=== PATIENT | male | born 1970 | race African-American/Black ===

== ENCOUNTER 2016-10-13 12:34 | Emergency (ER) | payer OTHER ==
--- NOTE | ~2016-10-13 | US115 ---
[facility] A Service of [facility] & [facility] RADIOLOGY TEXT RESULTS PATIENT: JOSE J VÁSQUEZ LOCATION: [facility] : 74 UNIT #: [id number] AGE: [address]: Yovanny Haq MD SEX: M ORDER DR: [id number] [facility] [address] [place], [place] [address] [id number] MR#: [id number] Acc #: [id number] NAME: JOSE J VÁSQUEZ : 1970 SEX: M STUDY DATE/TIME: 10/13/2016 13:41 UNIT: [facility] ROOM: STUDY DESCRIPTION: US Scrotum and Contents Attending Physician: Yovanny Haq M.D. Ordering Physician: Mario Nash D.O. Primary Care Physician: Generic Doctor Not In System MEDICAL IMAGING REPORT This report is preliminary unless electronic signature is present EXAM Scrotal ultrasound, 10/13/2016 HISTORY Right testicular pain since last night. Blood in semen 2 days ago. Patient took Viagra 2 days ago. FINDINGS Real time ultrasonography of the scrotal contents performed. Denise-scale, color Doppler, Doppler pulse-wave interrogation utilized. No prior scrotal ultrasound for comparison. The right testis measures 3.51 cm x 2.19 cm x 3.28 cm. It is normal in contour. There are scattered echogenic foci within the right testis. 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 There is no testicular mass lesion. There is arterial and venous flow within the right testis. The right testis shows mild generalized hyperemia. The right epididymis is heterogeneous in echotexture and generally thickened. It is markedly hyperemic particulate in the body and tail. Findings suggest right-sided epididymitis. Mild associated orchitis likely present given the hyperemia of the right testis. No intratesticular fluid collection. There is a small right hydrocele. The left testis measures 2.75 cm x 4 cm x 1.99 cm. It contains a few scattered punctate echogenic foci. It is normal in contour. No mass lesion. Arterial and venous flow seen in the left testis. The left epididymis is normal. Small left hydrocele smaller than on the right. IMPRESSION 1. Ultrasound findings most consistent with right sided epididymo-orchitis. There is generalized enlargement of the right epididymis with marked hyperemia. No epididymal mass lesion or STS. [facility] A Service of [facility] RADIOLOGY TEXT RESULTS PATIENT: JOSE J VÁSQUEZ LOCATION: [facility] : 74 UNIT #: [id number] AGE: [address]: Yovanny Haq MD SEX: M ORDER DR: abnormal intraparenchymal fluid collection. Followup after treatment recommended to confirm resolution of findings. The right testis shows no intraparenchymal mass lesion or abnormal fluid collection. It is mildly hyperemic relative to the left. This probably represents a component of mild right orchitis. It may simply be sympathetic hyperemia related to the right epididymitis. Attention at followup recommended. 2. Left testis and epididymis normal. Arterial and venous flow in bilateral testes. 3. Punctate calcifications bilateral testes, more pronounced on the right than left probably falling within spectrum of testicular microlithiasis. Followup ultrasound in 6-12 months recommended based upon patient risk factors. 4. Small bilateral hydroceles, right greater than left. Dictated by... Eric Katz M.D. THIS IS AN ELECTRONICALLY VERIFIED REPORT Eric Katz M.D. at 10/14/2016 4:25 PM Yenifer TD: 10/14/2016 03:44 JOB #: [id number] MEDICAL IMAGING REPORT COPY
[2016-10-13 14:10] LABS: URINE SOURCE CLEAN CATCH
[2016-10-13 14:26] LABS: URINE APPEARANCE CLEAR; URINE BILIRUBIN NEG (NEG); URINE BLOOD 2+ (NEG); URINE COLOR YELLOW; URINE GLUCOSE NEG (NEG); URINE KETONE NEG (NEG); URINE LEUKOCYTE ESTERASE 2+ (NEG); URINE NITRATE NEG (NEG); URINE PH 5.5 (5-8); URINE PROTEIN NEG (NEG); URINE SPECIFIC GRAVITY 1.016 (1.003-1.035); URINE UROBILINOGEN 0.2 MG/DL (NEG)
[2016-10-13 14:28] LABS: CULTURE INDICATED? YES; URINE BACTERIA AUWI NEG (NEGATIVE); URINE SQUAMOUS EPITHELIAL CELL NONE SEEN /[HPF]; UWBCS1 AUWI 50-100 (0-5)
[2016-10-18 14:25] LABS: CHLAMYDIA TRACH Not Detected (Not Detected); N GONOR Not Detected (Not Detected)
== END 2016-10-13 15:30 | disposition home or self-care (01) ==
LOC: CED 12:34
PROVIDERS: Emergency Medicine
DX: N45.3 Epididymo-orchitis (principal); F17.200 Nicotine dependence, unspecified, uncomplicated; Z90.89 Acquired absence of other organs
CPT/HCPCS: 76870; 81003; 87086; 87491; 87591; 93976; 96372; 99284; J0696

== ENCOUNTER 2017-04-14 13:09 | Emergency (ER) | payer OTHER ==
[~2017-04-14] VITALS: Ht 175.3 cm; Wt 74.8 kg
[2017-04-14 13:27] LABS: URINE SOURCE CLEAN CATCH
[2017-04-14 13:40] LABS: URINE APPEARANCE CLOUDY; URINE BILIRUBIN NEG (NEG); URINE BLOOD NEG (NEG); URINE COLOR YELLOW; URINE GLUCOSE NEG (NEG); URINE KETONE NEG (NEG); URINE LEUKOCYTE ESTERASE 3+ (NEG); URINE NITRATE NEG (NEG); URINE PH 5.5 (5-8); URINE PROTEIN NEG (NEG); URINE SPECIFIC GRAVITY 1.015 (1.003-1.035); URINE UROBILINOGEN 0.2 MG/DL (NEG)
[2017-04-14 13:42] LABS: CULTURE INDICATED? YES; URINE BACTERIA AUWI NEG (NEGATIVE); URINE SQUAMOUS EPITHELIAL CELL NONE SEEN /[HPF]; UWBCS1 AUWI 100-200 (0-5)
[2017-04-17 14:54] LABS: CHLAMYDIA TRACH Not Detected (Not Detected); N GONOR Detected (Not Detected)
== END 2017-04-14 14:28 | disposition home or self-care (01) ==
LOC: CFTX 13:09 → CED 13:09 → CFTX 14:01
PROVIDERS: Physician Assistant
DX: N34.1 Nonspecific urethritis (principal); F17.210 Nicotine dependence, cigarettes, uncomplicated
CPT/HCPCS: 81003; 87086; 87491; 87591; 96372; 99283; J0696